=== PATIENT | female | born 1935 | race Caucasian/White ===

== ENCOUNTER → 2018-01-24 10:29 | Outpatient (CLI) | payer OTHER, SELFPAY ==
--- NOTE | 2018-01-24 | DI.MRI.S_ITS ---
PROCEDURE: MR THORACIC SPINE WO CON INDICATIONS: THORACIC SPINE PAIN TECHNIQUE: Noncontrast sagittal T1 spine echo and T2 fast spin echo, sagittal STIR, axial T1 and T2 fast spin echo through the thoracic spine. COMPARISON: [facility], CR, XR CHEST 2VW, 11/23/2016, 10:52. FINDINGS: Image quality: Excellent. Alignment and Curvature: There is dextrocurvature of the thoracic spine. Bone Marrow: Marrow is of normal overall signal. Incidentally noted T1/T2 bright hemangiomas seen in the T1 and T11 vertebral bodies. No acute vertebral body compression fractures. Mild diffuse thoracic spine disc degeneration. Spinal Cord: Visualized spinal cord is normal in size and signal. Paraspinous Soft Tissues: No paravertebral masses. Miscellaneous: On axial images, central canal and foramina appear widely patent at all scanned levels. Hiatal hernia again noted. IMPRESSION: No canal or foraminal stenosis. Hiatal hernia. Dextroscoliosis. Mild diffuse thoracic spine disc degeneration. No evidence of fracture. Dictated by: Mele Cam M.D. on 01/24/2018 at 13:05 Approved by: Mele Cam M.D. on 01/24/2018 at 13:10
== END ==
PROVIDERS: PCP Family Medicine; Visit Provider Physical Medicine & Rehabilitation Pain Medicine
DX: M54.6 Pain in thoracic spine (principal); K44.9 Diaphragmatic hernia without obstruction or gangrene; M41.84 Other forms of scoliosis, thoracic region; M51.34 Other intervertebral disc degeneration, thoracic region
CPT/HCPCS: 72146

== ENCOUNTER → 2021-10-06 09:23 | Outpatient (CLI) | payer MEDICARE, SELFPAY ==
[2021-10-06 10:17] LABS: COVID19 -Nasal RAPID Negative (Negative)
== END ==
PROVIDERS: PCP Family Medicine; Visit Provider Nurse Practitioner Family
DX: Z20.822 Contact with and (suspected) exposure to COVID-19 (principal)
CPT/HCPCS: 87635; C9803

== ENCOUNTER 2021-10-07 07:44 | Day surgery (SDC) | payer MEDICARE, OTHER, SELFPAY ==
[2021-10-07] MEDS: PROPARACAINE 0.5% OPHTH SOL 2 DROPS EYE-OP (08:45)
[2021-10-07] MEDS: CATARACT EYE COMPOUND (10 DROPS/SYRINGE) 3 DROPS EYE-OP (08:50)
[2021-10-07 08:59] VITALS: BP 124/79; PULSE 49; RESP 18; TEMP 36.3; O2SAT 96; BMI 28.1
--- NOTE | 2021-10-07 09:36 | PM.PREOP ---
Pre-operative Note Interval Note History & Physical reviewed/Exam performed by Physician: Yes Changes to H&P: No
--- NOTE | 2021-10-07 09:36 | PM.OP.1 ---
Operative Date/Time/Diagnoses Pre-op diagnosis: Nuclear cataract right eye Procedure & Clinicians Procedure: Cataract Surgery Same procedure as scheduled: Yes Surgeon: Kin Edmonds Anesthesia Type: MAC +/- and Sedation Operative Notes Procedure in detail: Patient brought to the operating suite. Tetracaine drops placed in the right eye. Patient was prepped and draped in sterile manner. Wire lid speculum was placed in the eye. Betadine drops were placed on the eye. This was irrigated. Lidocaine jelly was placed on the eye. A paracentesis port was created with a side-port blade. 0.1 mL 1% preservative free lidocaine was injected into the anterior chamber. The anterior chamber was deepened with viscoelastic. 2.6 mm keratome was used to create a temporal clear corneal incision. Cystotome and Utrata forceps were used to create continuous tear capsulorrhexis. Balanced salt solution was used to hydro dissect the nucleus. The phacoemulsification handpiece was inserted and the nucleus was removed using the stop and chop technique. The irrigation aspiration handpiece was inserted and the remaining cortex was removed. Anterior chamber was deepened with viscoelastic. An Jiang DIB00 intraocular lens with a power of 21.5 was injected into the capsular bag. Irrigation aspiration handpiece was inserted and the remaining viscoelastic was removed. Incision was hydrated with balanced salt solution and found to be leak free with pressure with Weck-Cassandra sponges. 0.1 mL Vigamox injected anterior chamber. 0.3 mL Kenalog 10 mg was injected subconjunctivally. Lid speculum was removed. The patient left the operating room in excellent condition. Complications: none Post-operative Condition: stable Disposition: same day surgery
--- NOTE | 2021-10-07 09:41 | SUR.OPER ---
Supine on eye stretcher, head on extension cradle secured with tape. Arms tucked at sides with blanket. Pillow under knees.
[2021-10-07] MEDS: HYALURONATE SODIUM 30 MG-10 MG/ML SYRINGES 1 BOX INTRAOCULA (10:00)
[2021-10-07] MEDS: MOXIFLOXACIN INJ 4 MG/0.8 ML VIAL 0.5 MG EYE-OP (10:06)
[2021-10-07] MEDS: BALANCED SALT IRRIG SOLN NO.2 500 ML, EPINEPHrine 1 MG IRR (10:06)
[2021-10-07] MEDS: TRIAMCINOLONE 50 MG/5 ML VIAL INJ (10:06)
[2021-10-07] MEDS: PHENYLEPHRINE/LIDOCAINE VIAL (OR) 0.2 ML EYE-OP (10:06)
[2021-10-07] MEDS: TETRACAINE 0.5% OPHTH DROPS 4 ML 2 DROPS EYE-OP (10:08)
[2021-10-07] MEDS: LIDOCAINE 2% (GLYDO) 6 ML GEL TOP (10:08)
[2021-10-07 10:12] VITALS: BP 112/64; PULSE 51; RESP 16; TEMP 37.1; O2SAT 97
== END 2021-10-07 10:45 | disposition home or self-care (01) ==
PROVIDERS: PCP Family Medicine; Referring Provider Ophthalmology; Visit Provider Ophthalmology
PROC: (CPT 66984; principal; 2021-10-07 09:45)
DX: H25.11 Age-related nuclear cataract, right eye (principal); I10 Essential (primary) hypertension; J45.909 Unspecified asthma, uncomplicated; K21.9 Gastro-esophageal reflux disease without esophagitis; Z86.16 Personal history of COVID-19
CPT/HCPCS: 66984; J0171; J2250; J3301